=== PATIENT | male | born 1940 | race Caucasian/White ===

== ENCOUNTER 2018-04-14 20:24 | Inpatient (IN) | payer MEDICARE ==
[2018-04-14 21:35] LABS: BASO % 0.3 % (0.0-2.0); HEMOGLOBIN 11.5 g/dL (12.0-18.0); LYMPH # 0.4 K/uL (1.0-4.3); LYMPH % 3.5 % (20.0-40.0); MEAN CELL VOLUME 85.3 fl (80.0-94.0); MEAN CORPUSCULAR HEMOGLOBIN 28.5 pg (27.0-31.0); MEAN CORPUSCULAR HGB CONC 33.4 g/dL (33.0-37.0); MEAN PLATELET VOLUME 9.1 fl (7.2-11.7); MONO # 0.5 K/uL (0.0-0.8); MONO % 4.8 % (0.0-10.0); NEUT # 10.4 K/uL (1.8-7.0); NEUT % 91.4 % (50.0-75.0); PLATELET COUNT 132 K/uL (130-400); RBC 4.04 Mil/uL (4.40-5.90); RED CELL DISTRIBUTION WIDTH 14.8 % (11.5-14.5); WHITE BLOOD COUNT 11.3 K/uL (4.8-10.8)
--- NOTE | 2018-04-14 21:43 | ED PDOC ---
HPI: Trauma/Fall - HPI Time Seen by Provider: 04/14/18 20:33 Chief Complaint (Nursing): Trauma Chief Complaint (Provider): Trauma History Per: Patient History/Exam Limitations: clinical condition (Altered mental status) Additional Complaint(s): 78 y/o male is brought to the ED by EMS for alcohol intoxication. Patient denies use of alcohol and reports that he had fallen outside a bar. Reports that he is unsure of how he fell and denies any loss of consciousness. Patient has poor personal hygeine and smells like urine. Patient is only oriented to person. Denies any further medical complaints. PMD: none provided Past Medical History Reviewed: Historical Data, Nursing Documentation, Vital Signs Vital Signs: Last Vital Signs Temp 98.1 F 04/14/18 20:26 Pulse 92 H 04/14/18 21:40 Resp 20 04/14/18 21:40 BP 143/77 04/14/18 20:26 Pulse Ox 93 L 04/14/18 21:40 - Medical History PMH: No Chronic Diseases - Surgical History Surgical History: No Surg Hx - Family History Family History: States: Unknown Family Hx - Living Arrangements Living Arrangements: Alone (in [place]) - Social History Current smoker - smoking cessation education provided: No Alcohol: None Drugs: Denies - Home Medications Home Medications: Ambulatory Orders Medication Instructions Recorded Iodine/Sodium Iodide [Iodine 2% 2 % TOP BID 04/15/18 Tincture] - Allergies Allergies/Adverse Reactions: Allergies Allergy/AdvReac Type Severity Reaction Status Date / Time No Known Allergies Allergy Verified 04/14/18 20:32 Review of Systems ROS Statement: Except As Marked, All Systems Reviewed And Found Negative (As per HPI,otherwise negative) Neurological: Positive for: Other (Fall) Physical Exam - Reviewed Nursing Documentation Reviewed: Yes Vital Signs Reviewed: Yes - Physical Exam Appears: Positive for: No Acute Distress Head Exam: Positive for: ATRAUMATIC, NORMAL INSPECTION, NORMOCEPHALIC Skin: Positive for: Normal Color (Abrasion on right tibial surface which appears old and has dry blood), Warm, Dry Eye Exam: Positive for: EOMI, Normal appearance, PERRL ENT: Positive for: Normal ENT Inspection Neck: Positive for: Normal, Painless ROM Cardiovascular/Chest: Positive for: Regular Rate, Rhythm. Negative for: Murmur Respiratory: Positive for: Normal Breath Sounds. Negative for: Accessory Muscle Use, Respiratory Distress Gastrointestinal/Abdominal: Positive for: Normal Exam, Soft. Negative for: Tenderness Back: Positive for: Normal Inspection Extremity: Positive for: Pedal Edema (bilaterally), Swelling (B/L LE R>L), Other (draining wound 8x4 cm is noted to tibial surface with yellow sanguinous/ purulent drainage There is surrounding warmth/induration) Neurologic/Psych: Positive for: Alert, Oriented (only to person). Negative for : Motor/Sensory Deficits, Aphasia, Facial Droop - Laboratory Results Result Diagrams: 04/15/18 04:30 04/15/18 04:30 - ECG O2 Sat by Pulse Oximetry: 93 (RA) Pulse Ox Interpretation: Normal Medical Decision Making Medical Decision Making: Time: 20:42 Initial Impression: 78 y/o male with Altered Mental Status Plan: CT head w/o contrast EKG Alcohol serum BNP CMP Drug screen Troponin I Urine dipstick CBC w/ differential PTT Prothrombin time Blood culture Urine culture Heplock insertion Urinalysis Reevaluation Time: [address] FINDINGS: Limitations: Motion artifact - mild. Brain: Moderate atrophy. No definite intracranial hemorrhage. No mass. Few scattered subtle foci of decreased attenuation within periventricular/subcortical white matter. No definite edema. Ventricles: No hydrocephalus. Bones/joints: No acute fracture. Soft tissues: Unremarkable. Sinuses: Scattered minimal to mild mucosal thickening. Mastoid air cells: No mastoid effusion. Orbits: Unremarkable as visualized. IMPRESSION: 1. No definite intracranial hemorrhage. 2. Nonspecific white matter changes. Acute infarction may be CT occult within first 24 hours. If a focal deficit persists, consider followup CT or MRI for further evaluation. 3. Incidental/non-acute findings are described above. Dictated By: Adarsh Coronel MD Dictated Date/Time: 04/14/182308 Signed By: Adarsh Coronel MD Date Signed: 2308 Transcribed By: MAHENDRA Transcribe Date/Time : 04/14/182308 ACYP02/KEVIN Time: 2 Labs reviewed and found signification for mild leukocytosis with left shift, likely source is wound noticed in celluletic lesion to lower extremity. Patient is admitted for SIRS of right lower extremity celluletic draining wound. Podiatry consultation ordered. Patient is referred to Dr. Scherer. Scribe Attestation: Documented by Jason Youngblood acting as a scribe for Enzo Carpenter MD. MD Ramírezibkenn Attestation: All medical record entries made by the Scribe were at my direction and personally dictated by me. I have reviewed the chart and agree that the record accurately reflects my personal performance of the history, physical exam, medical decision making, and the department course for this patient. I have also personally directed, reviewed, and agree with the discharge instructions and disposition. Disposition - Clinical Impression Clinical Impression: Altered mental status, Cellulitis of right lower extremity - Patient ED Disposition Is Patient to be Admitted: Yes - Disposition Disposition Time: 23:00 Condition: FAIR
[2018-04-14 21:46] LABS: ALBUMIN 3.8 g/dL (3.5-5.0); ALT/SGPT 39 U/L (21-72); AST/SGOT 46 U/L (17-59); BLOOD UREA NITROGEN 34 mg/dl (9-20); CALCIUM 8.8 mg/dL (8.4-10.2); GFR AFRICAN-AMERICAN > 60; GFR NON-AFRICAN AMERICAN 53
[2018-04-14 21:54] LABS: B-TYPE NATRIURETIC PEPTIDE 733 pg/ml (0-900)
[2018-04-14 21:58] LABS: INR 1.4 (0.9-1.2); PARTIAL THROMBOPLASTIN TIME 29.3 Seconds (25.6-37.1); PROTHROMBIN TIME 15.1 Seconds (9.8-13.1)
[2018-04-14 22:17] LABS: LYMPHOCYTE 2 % (20-50); MONOCYTE 2 % (0-10); NEUTROPHIL 96 % (42-75); PLATELET ESTIMATE NORMAL (NORMAL); TOTAL CELLS COUNTED 100
[2018-04-14 22:18] LABS: ANISOCYTOSIS SLIGHT; OVALOCYTES SLIGHT; POIKILOCYTOSIS SLIGHT
--- NOTE | 2018-04-14 23:10 | CT ---
EXAM: CT Head Without Intravenous Contrast CLINICAL HISTORY: 78 years old, male; Injury or trauma; Injury Falling? . Found lying on the street. ETOH? ; Initial encounter; Laceration; Consciousness not specified; Without residual foreign body; Head, generalized; Injury date: Today? ; Additional info: AMS TECHNIQUE: Axial computed tomography images of the head/brain without intravenous contrast. All CT scans at this facility use one or more dose reduction techniques, viz.: automated exposure control; ma/kV adjustment per patient size (including targeted exams where dose is matched to indication; i.e. head); or iterative reconstruction technique. Coronal and sagittal reformatted images were created and reviewed. COMPARISON: No relevant prior studies available. FINDINGS: Limitations: Motion artifact - mild. Brain: Moderate atrophy. No definite intracranial hemorrhage. No mass. Few scattered subtle foci of decreased attenuation within periventricular/subcortical white matter. No definite edema. Ventricles: No hydrocephalus. Bones/joints: No acute fracture. Soft tissues: Unremarkable. Sinuses: Scattered minimal to mild mucosal thickening. Mastoid air cells: No mastoid effusion. Orbits: Unremarkable as visualized. IMPRESSION: 1. No definite intracranial hemorrhage. 2. Nonspecific white matter changes. Acute infarction may be CT occult within first 24 hours. If a focal deficit persists, consider followup CT or MRI for further evaluation. 3. Incidental/non-acute findings are described above.
[2018-04-14] MEDS ORDERED: Piperacillin/Tazobact 3.375 GM in Sodium Chloride 0.9% 100 ML IV STA (23:21)
[2018-04-14] MEDS ORDERED: Lactated Ringer's 1,000 ML IV SCH (23:45)
[2018-04-14] MEDS ORDERED: Vancomycin 1 g Inj ONE (23:46)
--- NOTE | 2018-04-14 23:50 | CP.PCM.HP ---
History of Present Illness - History of Present Illness History of Present Illness: CC: confusion HPI: This is an 78 y/o male with unknown medical Hx who was initially brought in by EMS for suspected EtOH intoxication. He was found to have fallen down outside a bar. Patient denies EtOH, and was not sure how he fell. Denied LOC. Patient appears to only be oriented to person and perhaps place. He does not provide much of a reliable history. Patient is unkempt, appears to have poor hygiene, and smells of urine. ROS: limited due to mental status MHx/SHx: patient does not provide any history of chronic disease or surgery Allergie: NKDA Medications: unknown Family Hx: patient cannot provide Social Hx: Apparently patient lives alone, unknown EtOH or tobacco Present on Admission - Present on Admission Any Indicators Present on Admission: No Past Patient History - Past Social History Alcohol: None Drugs: Denies - PSYCHIATRIC Hx Substance Use: No Meds Allergies/Adverse Reactions: Allergies Allergy/AdvReac Type Severity Reaction Status Date / Time No Known Allergies Allergy Verified 04/14/18 20:32 Physical Exam - Constitutional Appears: Unkempt, Confused - Head Exam Head Exam: NORMOCEPHALIC - Eye Exam Eye Exam: EOMI, PERRL - ENT Exam ENT Exam: Mucous Membranes Dry - Neck Exam Neck exam: Positive for: Full Rom - Respiratory Exam Respiratory Exam: Clear to Auscultation Bilateral, NORMAL BREATHING PATTERN - Cardiovascular Exam Cardiovascular Exam: REGULAR RHYTHM, +S1, +S2 - GI/Abdominal Exam GI & Abdominal Exam: Normal Bowel Sounds, Soft - Extremities Exam Additional comments: both LE extremely edemetous appearing with RLE having an open wound/possible abscess with some drainage - Neurological Exam Additional comments: awake, alert, oriented to person/place, but otherwise cannot answer questions clearly, repeats self multiple times. - Skin Additional comments: as described above Results - Vital Signs Recent Vital Signs: Last Vital Signs Temp 98.1 F 04/14/18 20:26 Pulse 88 04/14/18 23:03 Resp 22 04/14/18 23:03 BP 126/63 04/14/18 23:03 Pulse Ox 93 L 04/14/18 23:24 - Labs Result Diagrams: 04/14/18 21:25 04/14/18 21:25 Labs: Laboratory Results - last 24 hr 04/14/18 04/14/18 04/14/18 21:01 21:25 21:25 WBC 11.3 H RBC 4.04 L Hgb 11.5 L Hct 34.4 L MCV 85.3 MCH 28.5 MCHC 33.4 RDW 14.8 H Plt Count 132 MPV 9.1 Neut % (Auto) 91.4 H Lymph % (Auto) 3.[address] [place] % (Auto) 4.8 Eos % (Auto) 0.0 Baso % (Auto) 0.3 Neut # (Auto) 10.4 H Lymph # (Auto) 0.[address] [place] # (Auto) 0.5 Eos # (Auto) 0.0 Baso # (Auto) 0.0 Neutrophils % (Manual) 96 H Lymphocytes % (Manual) 2 L Monocytes % (Manual) 2 Platelet Estimate Normal Poikilocytosis (manual Slight Anisocytosis (manual) Slight Ovalocytes Slight PT INR APTT Sodium 138 Potassium 3.3 L Chloride 102 Carbon Dioxide 19 L Anion Gap 20 BUN 34 H Creatinine 1.3 Est GFR ( Amer) > 60 Est GFR (Non-Af Amer) 53 POC Glucose (mg/dL) 126 H Random Glucose 130 H Lactic Acid Calcium 8.8 Total Bilirubin 1.5 H AST 46 ALT 39 Alkaline Phosphatase 62 Troponin I 0.0380 NT-Pro-B Natriuret Pep 733 Total Protein 7.5 Albumin 3.8 Globulin 3.7 Albumin/Globulin Ratio 1.0 Alcohol, Quantitative < 10 04/14/18 04/14/18 21:25 22:19 WBC RBC Hgb Hct MCV MCH MCHC RDW Plt Count MPV Neut % (Auto) Lymph % (Auto) [place] % (Auto) Eos % (Auto) Baso % (Auto) Neut # (Auto) Lymph # (Auto) [place] # (Auto) Eos # (Auto) Baso # (Auto) Neutrophils % (Manual) Lymphocytes % (Manual) Monocytes % (Manual) Platelet Estimate Poikilocytosis (manual Anisocytosis (manual) Ovalocytes PT 15.1 H INR 1.4 H APTT 29.3 Sodium Potassium Chloride Carbon Dioxide Anion Gap BUN Creatinine Est GFR ( Amer) Est GFR (Non-Af Amer) POC Glucose (mg/dL) Random Glucose Lactic Acid 0.8 Calcium Total Bilirubin AST ALT Alkaline Phosphatase Troponin I NT-Pro-B Natriuret Pep Total Protein Albumin Globulin Albumin/Globulin Ratio Alcohol, Quantitative - Imaging and Cardiology CT scan - head Status: Image reviewed by me, Report reviewed by me (unremarkable) Assessment & Plan (1) Cellulitis of right lower extremity Assessment and Plan: 78 y/o male with unknown medical history presenting with sepsis, likely 2/2 cellulitis/abscess of RLE. 1) Cellulitis/abscess/sepsis -Continue vanc/zosyn as started in ER -IVF -f/u cultures -Podiatry consult 2) Confusion -- suspect undiagnosed dementia 3) DVT PPx -- SQ heparin Status: Acute (2) Edema Status: Acute (3) Confused Status: Acute (4) DVT prophylaxis Status: Acute
[2018-04-14] MEDS ORDERED: Potassium Chloride 20 mEq ER Tab PO ONE (23:55)
[2018-04-15 00:08] LABS: URINE BACTERIA RARE (<OCC); URINE BILIRUBIN NEGATIVE (NEGATIVE); URINE BLOOD MODERATE (NEGATIVE); URINE CLARITY CLOUDY (Clear); URINE COLOR AMBER (YELLOW); URINE GLUCOSE (UA) NEG (Normal); URINE LEUKOCYTE ESTERASE NEG Leu/uL (Negative); URINE PROTEIN 100 mg/dL (NEGATIVE)
[2018-04-15 00:40] LABS: BARBITURATES, UR NEGATIVE (NEGATIVE); BENZODIAZEPINES, UR NEGATIVE (NEGATIVE)
[2018-04-15 00:41] LABS: OPIATES, UR NEGATIVE (NEGATIVE); PHENCYCLIDINE, UR NEGATIVE (NEGATIVE)
--- NOTE | 2018-04-15 00:47 | CP.PCM.CON ---
History of Present Illness - History of Present Illness History of Present Illness: Podiatry Consult- Dr. Batista 78 y.o male with no PMH seen and evaluated in the ED for right leg infection. Patient brought in the ED for suspected EtOH intoxication. Patient is more awake during the encounter, able to answer questions. Patient is seen resting comfortably in bed. Patient does not recall how he got the leg wound. Reports that he noticed it one day about 5 months ago. Reports the wound getting smaller and scabbed over. Patient denies pain to the lower extremity. PMD: none PSH: denies SH: former smoker (reported smoking for couple of months, 1-2 cigarettes per day ), denies drinking EtOH or illicit drug use ALL: NKDA MEDS: none FH: denies Past Patient History - Past Social History Alcohol: None Drugs: Denies - PSYCHIATRIC Hx Substance Use: No Meds Allergies/Adverse Reactions: Allergies Allergy/AdvReac Type Severity Reaction Status Date / Time No Known Allergies Allergy Verified 04/14/18 20:32 - Medications Medications: Current Medications Acetaminophen (Tylenol 325mg Tab) 650 mg PO Q6 PRN PRN Reason: Fever >100.4 F Enoxaparin Sodium (Lovenox) 40 mg SC DAILY DAWN PRN Reason: Protocol Vancomycin HCl 1 gm/ Sodium (Chloride) 250 mls @ 166.667 mls/hr IVPB STAT STA PRN Reason: Protocol Stop: 04/15/18 00:49 Last Admin: 04/14/18 23:52 Dose: 166.667 mls/hr Vancomycin HCl 1 gm/ Sodium (Chloride) 250 mls @ 166.667 mls/hr IVPB Q12 DAWN PRN Reason: Protocol Piperacillin Sod/Tazobactam (Sod 3.375 gm/ Sodium Chloride) 100 mls @ 100 mls/ hr IVPB Q6 DAWN PRN Reason: Protocol Lactated Ringer's (Lactated Ringer's) 1,000 mls @ 100 mls/hr IV .Q10H DAWN Stop: 04/15/18 09:44 Physical Exam - Constitutional Appears: Well, Non-toxic, No Acute Distress - Extremities Exam Extremities exam: Positive for: calf tenderness Additional comments: VASC: DP and PT 2/4 bilaterally, temperature to bilaterally LE warm to warm R>L , CFT < 3 seconds x 10 digis, ORTHO: mild pain with palpation to site surrounding ulceration NEURO: gross and protective sensation intact DERM: RIGHT LE: hyperkeratotic lesion with open fissures noted to the anterior lower 1 /3 leg measuring approximately 3 cm x 6 cm, erythema noted surrounding lesion encompassing entire distal 2/3 of the leg to the ankle. Increase calor, serous drainage, no purulence drainage, no odor, no streaking, lateral aspect of distal 1/3 leg is soft, no fluctanance, no abscess noted- will continue to monitor closely for abscess/fuctanance, no tunneling, no undermining, no probe to bone appreciated LEFT LE: erythema noted to the anterior distal 1/3 leg with no open lesions. No abscess no fluctanance - Neurological Exam Neurological exam: Alert - Psychiatric Exam Psychiatric exam: Normal Affect, Normal Mood Results - Vital Signs Recent Vital Signs: Last Vital Signs Temp 98.1 F 04/14/18 20:26 Pulse 88 04/15/18 00:13 Resp 22 04/15/18 00:13 BP 126/63 04/15/18 00:13 Pulse Ox 93 L 04/15/18 00:16 - Labs Result Diagrams: 04/15/18 04:30 04/15/18 04:30 Labs: Laboratory Results - last 24 hr 04/14/18 04/14/18 04/14/18 21:01 21:25 21:25 WBC 11.3 H RBC 4.04 L Hgb 11.5 L Hct 34.4 L MCV 85.3 MCH 28.5 MCHC 33.4 RDW 14.8 H Plt Count 132 MPV 9.1 Neut % (Auto) 91.4 H Lymph % (Auto) 3.5 L [place] % (Auto) 4.8 Eos % (Auto) 0.0 Baso % (Auto) 0.3 Neut # (Auto) 10.4 H Lymph # (Auto) 0.4 L [place] # (Auto) 0.5 Eos # (Auto) 0.0 Baso # (Auto) 0.0 Neutrophils % (Manual) 96 H Lymphocytes % (Manual) 2 L Monocytes % (Manual) 2 Platelet Estimate Normal Poikilocytosis (manual Slight Anisocytosis (manual) Slight Ovalocytes Slight PT INR APTT Sodium 138 Potassium 3.3 L Chloride 102 Carbon Dioxide 19 L Anion Gap 20 BUN 34 H Creatinine 1.3 Est GFR ( Amer) > 60 Est GFR (Non-Af Amer) 53 POC Glucose (mg/dL) 126 H Random Glucose 130 H Lactic Acid Calcium 8.8 Total Bilirubin 1.5 H AST 46 ALT 39 Alkaline Phosphatase 62 Troponin I 0.0380 NT-Pro-B Natriuret Pep 733 Total Protein 7.5 Albumin 3.8 Globulin 3.7 Albumin/Globulin Ratio 1.0 Urine Color Urine Clarity Urine pH Ur Specific [place] Urine Protein Urine Glucose (UA) Urine Ketones Urine Blood Urine Nitrate Urine Bilirubin Urine Urobilinogen Ur Leukocyte Esterase Urine RBC (Auto) Urine Microscopic WBC Urine Bacteria Urine Opiates Screen Urine Methadone Screen Ur Barbiturates Screen Ur Phencyclidine Scrn Ur Amphetamines Screen U Benzodiazepines Scrn U Oth Cocaine Metabols U Cannabinoids Screen Alcohol, Quantitative < 10 04/14/18 04/14/18 04/14/18 21:25 22:19 23:55 WBC RBC Hgb Hct MCV MCH MCHC RDW Plt Count MPV Neut % (Auto) Lymph % (Auto) [place] % (Auto) Eos % (Auto) Baso % (Auto) Neut # (Auto) Lymph # (Auto) [place] # (Auto) Eos # (Auto) Baso # (Auto) Neutrophils % (Manual) Lymphocytes % (Manual) Monocytes % (Manual) Platelet Estimate Poikilocytosis (manual Anisocytosis (manual) Ovalocytes PT 15.1 H INR 1.4 H APTT 29.3 Sodium Potassium Chloride Carbon Dioxide Anion Gap BUN Creatinine Est GFR ( Amer) Est GFR (Non-Af Amer) POC Glucose (mg/dL) Random Glucose Lactic Acid 0.8 Calcium Total Bilirubin AST ALT Alkaline Phosphatase Troponin I NT-Pro-B Natriuret Pep Total Protein Albumin Globulin Albumin/Globulin Ratio Urine Color Urine Clarity Urine pH Ur Specific [place] Urine Protein Urine Glucose (UA) Urine Ketones Urine Blood Urine Nitrate Urine Bilirubin Urine Urobilinogen Ur Leukocyte Esterase Urine RBC (Auto) Urine Microscopic WBC Urine Bacteria Urine Opiates Screen Negative Urine Methadone Screen Negative Ur Barbiturates Screen Negative Ur Phencyclidine Scrn Negative Ur Amphetamines Screen Negative U Benzodiazepines Scrn Negative U Oth Cocaine Metabols Negative U Cannabinoids Screen Negative Alcohol, Quantitative 04/14/18 23:55 WBC RBC Hgb Hct MCV MCH MCHC RDW Plt Count MPV Neut % (Auto) Lymph % (Auto) [place] % (Auto) Eos % (Auto) Baso % (Auto) Neut # (Auto) Lymph # (Auto) [place] # (Auto) Eos # (Auto) Baso # (Auto) Neutrophils % (Manual) Lymphocytes % (Manual) Monocytes % (Manual) Platelet Estimate Poikilocytosis (manual Anisocytosis (manual) Ovalocytes PT INR APTT Sodium Potassium Chloride Carbon Dioxide Anion Gap BUN Creatinine Est GFR ( Amer) Est GFR (Non-Af Amer) POC Glucose (mg/dL) Random Glucose Lactic Acid Calcium Total Bilirubin AST ALT Alkaline Phosphatase Troponin I NT-Pro-B Natriuret Pep Total Protein Albumin Globulin Albumin/Globulin Ratio Urine Color [place] Urine Clarity Cloudy Urine pH 5.0 Ur Specific [place] 1.026 Urine Protein 100 Urine Glucose (UA) Neg Urine Ketones Trace Urine Blood Moderate Urine Nitrate Negative Urine Bilirubin Negative Urine Urobilinogen 2.0 Ur Leukocyte Esterase Neg Urine RBC (Auto) 3 Urine Microscopic WBC 3 Urine Bacteria Rare Urine Opiates Screen Urine Methadone Screen Ur Barbiturates Screen Ur Phencyclidine Scrn Ur Amphetamines Screen U Benzodiazepines Scrn U Oth Cocaine Metabols U Cannabinoids Screen Alcohol, Quantitative Assessment & Plan - Assessment and Plan (Free Text) Assessment: 78 y.o male with no PMH for right leg ulcer with bilaterally LE cellulitis Plan: Patient seen and examined Discussed plan in detail with attending Dr. Batista Afebrile, WBC 11.3 leukocytosis X-ray reviewed- no gas emphysema, no OM noted Right leg cleansed with wound cleanser and copious saline Wound culture taken of right leg Dressed with xeroform dsd and kerlix Continue with Vanco and Zosyn Ordered duplex to rule out DVT Will continue to follow patient on the floors Thank you for allowing us to participate in patient's care
[2018-04-15 06:05] LABS: HEMOGLOBIN 12.1 g/dL (12.0-18.0); MEAN CELL VOLUME 86.2 fl (80.0-94.0); MEAN CORPUSCULAR HEMOGLOBIN 28.5 pg (27.0-31.0); RBC 4.25 Mil/uL (4.40-5.90); WHITE BLOOD COUNT 12.2 K/uL (4.8-10.8)
[2018-04-15 06:17] LABS: BLOOD UREA NITROGEN 28 mg/dl (9-20); GFR AFRICAN-AMERICAN > 60; GFR NON-AFRICAN AMERICAN 58
[2018-04-15] MEDS: Piperacillin/Tazobact 3.375 GM in Sodium Chloride 0.9% 100 ML IVPB SCH ×3 (06:39→18:00)
--- NOTE | 2018-04-15 07:29 | CP.PCM.PN ---
Subjective - Date & Time of Evaluation Date of Evaluation: 04/15/18 Time of Evaluation: 07:29 - Subjective Subjective: pt oriented to person, place, and time, however takes time to answer questions no pain, no cp , no sob hd stable nad Objective - Vital Signs/Intake and Output Vital Signs (last 24 hours): Temp Pulse Resp BP Pulse Ox 98.3 F 75 20 121/56 L 93 L 04/15/18 05:00 04/15/18 05:00 04/15/18 05:00 04/15/18 05:00 04/15/18 06:34 - Medications Medications: Current Medications Acetaminophen (Tylenol 325mg Tab) 650 mg PO Q6 PRN PRN Reason: Fever >100.4 F Enoxaparin Sodium (Lovenox) 40 mg SC DAILY DAWN PRN Reason: Protocol Vancomycin HCl 1 gm/ Sodium (Chloride) 250 mls @ 166.667 mls/hr IVPB Q12 DAWN PRN Reason: Protocol Piperacillin Sod/Tazobactam (Sod 3.375 gm/ Sodium Chloride) 100 mls @ 100 mls/ hr IVPB Q6H DAWN PRN Reason: Protocol Last Admin: 04/15/18 06:39 Dose: 100 mls/hr Lactated Ringer's (Lactated Ringer's) 1,000 mls @ 100 mls/hr IV .Q10H DAWN Stop: 04/15/18 09:44 Last Admin: 04/15/18 01:31 Dose: 100 mls/hr Pneumococcal Polyvalent Vaccine (Pneumovax 23 Vaccine) 0.5 ml IM .ONCE ONE Stop: 04/15/18 09:01 - Labs Labs: 04/15/18 04:30 04/15/18 04:30 PT 15.1 Seconds (9.8-13.1) H 04/14/18 21:25 INR 1.4 (0.9-1.2) H 04/14/18 21:25 APTT 29.3 Seconds (25.6-37.1) 04/14/18 21:25 - Constitutional Appears: Non-toxic, No Acute Distress - Head Exam Head Exam: ATRAUMATIC, NORMOCEPHALIC - Eye Exam Eye Exam: EOMI, Normal appearance, PERRL - Respiratory Exam Respiratory Exam: Clear to Ausculation Bilateral, NORMAL BREATHING PATTERN - Cardiovascular Exam Cardiovascular Exam: RRR, +S1, +S2 - GI/Abdominal Exam GI & Abdominal Exam: Soft, Normal Bowel Sounds. absent: Tenderness, Organomegaly - Extremities Exam Extremities Exam: Normal Capillary Refill, Tenderness. absent: Joint Swelling - Back Exam Back Exam: absent: CVA tenderness (L), CVA tenderness (R) - Neurological Exam Neurological Exam: Alert, Awake, Oriented x3 - Psychiatric Exam Psychiatric exam: Normal Affect, Normal Mood - Skin Skin Exam: Dry, Warm Assessment and Plan - Assessment and Plan (Free Text) Plan: 78 y/o male with unknown medical Hx who was initially brought in by EMS for suspected EtOH intoxication. He was found to have fallen down outside a bar. Patient denies EtOH, and was not sure how he fell. Denied LOC. Patient appeared to be confused on admission, however today he is oriented to person, place, time. He does have difficulty answering questions at times. Possible dementia? 1) Cellulitis RLE - XR and CT neg for osteomyelitis - afebrile, mild leukocytosis - VANC/ZOSYN initiated - cultures pending - Podiatry consult appreciated - PT/OT for mobility 2) Confusion - dementia? - TSH/B12 PENDING - normal hepatic function - pt BUN elevated, mild azotemia hydrating gently with NS 3) DVT PPx -- SQ heparin
--- NOTE | 2018-04-15 08:28 | RAD ---
HISTORY: admit COMPARISON: No prior. FINDINGS: LUNGS: The lungs are well inflated. There is linear atelectasis/ scarring in the right lung base. PLEURA: No significant pleural effusion identified, no pneumothorax apparent. CARDIOVASCULAR: There is mild cardiomegaly. OSSEOUS STRUCTURES: No significant abnormalities. VISUALIZED UPPER ABDOMEN: Normal. OTHER FINDINGS: None. IMPRESSION: No active pulmonary disease.
[2018-04-15] MEDS ORDERED: Pneumococcal 23-Valent Vaccine IM ONE (09:00)
[2018-04-15] MEDS: Enoxaparin 40 mg Syringe SC SCH (09:37)
--- NOTE | 2018-04-15 09:53 | RAD ---
PROCEDURE: Radiographs of the right tibia and fibula. HISTORY: right lower extremity wound COMPARISON: None available. TECHNIQUE: Frontal and lateral views obtained. FINDINGS: BONES: No acute fracture or destructive lesion.Bone alignment and mineralization are normal. JOINT SPACES: Unremarkable. OTHER FINDINGS: There is diffuse subcutaneous edema in the legs. IMPRESSION: No evidence of osteomyelitis. Subcutaneous edema in the legs.
--- NOTE | 2018-04-15 11:55 | US ---
PROCEDURE: Bilateral lower extremity venous duplex Doppler. HISTORY: r/o DVT COMPARISON: None available. TECHNIQUE: Bilateral common femoral, superficial femoral, popliteal and posterior tibial veins were evaluated. Flow was assessed with color Doppler, compressibility, assessment of phasic flow and augmentation response. FINDINGS: COMMON FEMORAL VEIN: Right CFV: Unremarkable. Left CFV: Unremarkable. SUPERFICIAL FEMORAL VEIN: Right SFV: Unremarkable. Left SFV: Unremarkable. POPLITEAL VEIN: Right Popliteal: Unremarkable. Left Popliteal: Unremarkable. POSTERIOR TIBIAL VEIN: Right PTV: Unremarkable. Left PTV: Unremarkable. OTHER FINDINGS: There are enlarged right inguinal lymph nodes. IMPRESSION: No evidence of deep venous thrombosis. Right inguinal lymphadenopathy which may be reactive, infectious or inflammatory in etiology. Neoplastic etiology cannot be entirely excluded. Clinical correlation and follow-up is advised.
--- NOTE | 2018-04-15 11:58 | CP.PCM.PN ---
Subjective - Date & Time of Evaluation Date of Evaluation: 04/15/18 Time of Evaluation: 11:55 - Subjective Subjective: Podiatry Progress Note- Dr. Batista 78 y.o male seen and evaluated at bedside for right leg ulceration with bilaterally cellulitis and lymphedema. Patient is seen resting comfortably in bed and in NAD. No acute events overnight. Patient reports he feels slightly better. Reports no pain to the lower extremity with no pressure. Reports mild pain with palpation the the lower extremity. Denies nausea, fever, shortness of breath, chest pain or chills. Denies calf pain. Objective - Vital Signs/Intake and Output Vital Signs (last 24 hours): Temp Pulse Resp BP Pulse Ox 97.9 F 72 20 120/64 97 04/15/18 11:53 04/15/18 11:53 04/15/18 11:53 04/15/18 11:53 04/15/18 11:53 - Medications Medications: Current Medications Acetaminophen (Tylenol 325mg Tab) 650 mg PO Q6 PRN PRN Reason: Fever >100.4 F Enoxaparin Sodium (Lovenox) 40 mg SC DAILY DAWN PRN Reason: Protocol Last Admin: 04/15/18 09:37 Dose: 40 mg Vancomycin HCl 1 gm/ Sodium (Chloride) 250 mls @ 166.667 mls/hr IVPB Q12 DAWN PRN Reason: Protocol Last Admin: 04/15/18 09:00 Dose: 166.667 mls/hr Piperacillin Sod/Tazobactam (Sod 3.375 gm/ Sodium Chloride) 100 mls @ 100 mls/ hr IVPB Q6H DAWN PRN Reason: Protocol Last Admin: 04/15/18 06:39 Dose: 100 mls/hr - Labs Labs: 04/15/18 04:30 04/15/18 04:30 PT 15.1 Seconds (9.8-13.1) H 04/14/18 21:25 INR 1.4 (0.9-1.2) H 04/14/18 21:25 APTT 29.3 Seconds (25.6-37.1) 04/14/18 21:25 - Constitutional Appears: Non-toxic, No Acute Distress - Extremities Exam Extremities Exam: absent: Calf Tenderness Additional comments: VASC: DP and PT 2/4 bilaterally, temperature to bilaterally LE warm to warm R>L , CFT < 3 seconds x 10 digits, lymphedema to the LE ORTHO: mild pain with palpation to site surrounding ulceration to the right leg , no calf tenderness with squeeze NEURO: gross sensation intact and protective sensation diminished DERM: RIGHT LE: ulceration noted to the anterior lower 1/3 leg measuring approximately 3 cm x 5 cm, with wound base mainly granular, hyperkeratotic periwound noted superiorly, erythema noted surrounding lesion encompassing entire distal 2/3 of the leg to the ankle. Increase calor, serous drainage, no purulence drainage, no odor, no streaking, lateral aspect of distal 1/3 leg is soft with palpation, no fluctuance, no abscess noted- will continue to monitor closely for abscess/fluctuance, no tunneling, no undermining, no probe to bone appreciated LEFT LE: erythema noted to the anterior distal 1/3 leg with no open lesions. Erythema has slightly improved. No abscess, no fluctuance - Neurological Exam Neurological Exam: Alert, Awake - Psychiatric Exam Psychiatric exam: Normal Affect, Normal Mood Assessment and Plan - Assessment and Plan (Free Text) Assessment: 78 y.o male seen and evaluated at bedside for right leg ulceration with bilaterally cellulitis and lymphedema. Plan: Patient seen and examined Discussed plan in detail with attending Dr. Batista Afebrile, WBC 12.2 leukocytosis (trended up from 11.3) X-ray reviewed- Impression: no OM osteomyelitis noted, subcutaneous edema Duplex- No DVT to LE bilaterally Wound culture taken of right leg in ED- pending Prep patient with betadine, with 18 gauge needle, lateral aspect of lower 1/3 leg was punctured to examine possible abscess in leg. There was no abscess expressed with 18 gauge needle. Sangious blood noted. Cleansed ulceration and site of puncture with saline solution, dressed with dsd , and kerlix. Marked erythema margins to the right leg to monitor cellulitis Ordered CT to r/o emphysema and other pathology Will hold off MRI, unclear if patient has pacemaker Continue with Vanco and Zosyn Will continue to follow patient on the floors Thank you for allowing us to participate in patient's care
--- NOTE | 2018-04-15 15:27 | CT ---
PROCEDURE: CT scan of the right tibia and fibula INDICATION: TECHNIQUE: Multiple axial images were obtained with slice thickness of 2.5 mm. Coronal and sagittal reformatted images were obtained. Iterative reconstruction was used. Radiation dose: Total exam DLP = 435.18 mGy-cm. This CT exam was performed using one or more of the following dose reduction techniques: Automated exposure control, adjustment of the mA and/or kV according to patient size, and/or use of iterative reconstruction technique. COMPARISON: Plain radiographs from 04/14/2018. FINDINGS: There is no acute displaced fracture or bone destruction. Bone alignment is normal. There is diffuse bone demineralization. Bone There is diffuse subcutaneous edema in the left and foot and intermuscular edema without evidence for drainable fluid collection. IMPRESSION: No CT evidence for osteomyelitis. Cellulitis in the leg and foot. No drainable fluid collection.
[2018-04-15] MEDS ORDERED: Sodium Chloride 0.9% 1,000 ML IV SCH (17:15)
[2018-04-16] MEDS: Piperacillin/Tazobact 3.375 GM in Sodium Chloride 0.9% 100 ML IVPB SCH ×4 (00:58→17:01)
[2018-04-16 05:35] LABS: HEMOGLOBIN 11.4 g/dL (12.0-18.0); MEAN CELL VOLUME 86.9 fl (80.0-94.0); MEAN CORPUSCULAR HEMOGLOBIN 28.2 pg (27.0-31.0); MEAN CORPUSCULAR HGB CONC 32.5 g/dL (33.0-37.0); RBC 4.06 Mil/uL (4.40-5.90); RED CELL DISTRIBUTION WIDTH 15.2 % (11.5-14.5); WHITE BLOOD COUNT 8.9 K/uL (4.8-10.8)
[2018-04-16 05:49] LABS: BLOOD UREA NITROGEN 23 mg/dl (9-20); CALCIUM 8.4 mg/dL (8.4-10.2); GFR AFRICAN-AMERICAN > 60; GFR NON-AFRICAN AMERICAN > 60
[2018-04-16] MEDS ORDERED: Potassium Chloride 20 mEq ER Tab PO ONE (08:00)
--- NOTE | 2018-04-16 08:03 | CP.PCM.PN ---
Subjective - Date & Time of Evaluation Date of Evaluation: 04/16/18 Time of Evaluation: 08:03 - Subjective Subjective: Podiatry - Dr. Batista 78M seen and evaluated this AM for RLE cellulitis. Hospitalist present at bedside. Patient hemodynamically stable, NAD. No acute events overnight. Patient states the redness and swelling to his right leg is improving. Admits to mild tenderness around his wound. Denies N/V/F/D/C/SOB. Offers no other complaints. Objective - Vital Signs/Intake and Output Vital Signs (last 24 hours): Temp Pulse Resp BP Pulse Ox 97.4 F L 76 18 151/72 H 95 04/16/18 08:01 04/16/18 08:01 04/16/18 08:01 04/16/18 08:01 04/16/18 08:01 - Medications Medications: Current Medications Acetaminophen (Tylenol 325mg Tab) 650 mg PO Q6 PRN PRN Reason: Fever >100.4 F Cyanocobalamin (Vitamin B12 1000 Mcg/Ml Inj) 1,000 mcg IM DAILY DAWN Stop: 04/18/18 09:01 Enoxaparin Sodium (Lovenox) 40 mg SC DAILY DAWN PRN Reason: Protocol Last Admin: 04/15/18 09:37 Dose: 40 mg Vancomycin HCl 1 gm/ Sodium (Chloride) 250 mls @ 166.667 mls/hr IVPB Q12 DAWN PRN Reason: Protocol Last Admin: 04/15/18 22:15 Dose: 166.667 mls/hr Piperacillin Sod/Tazobactam (Sod 3.375 gm/ Sodium Chloride) 100 mls @ 100 mls/ hr IVPB Q6H DAWN PRN Reason: Protocol Last Admin: 04/16/18 05:30 Dose: 100 mls/hr - Labs Labs: 04/16/18 04:20 04/16/18 04:20 PT 15.1 Seconds (9.8-13.1) H 04/14/18 21:25 INR 1.4 (0.9-1.2) H 04/14/18 21:25 APTT 29.3 Seconds (25.6-37.1) 04/14/18 21:25 - Constitutional Appears: Well, Non-toxic, No Acute Distress - Extremities Exam Additional comments: VASC: DP pulses palpable 2/4 b/l, PT pulses weakly palpable 1/4. CFT <3 seconds to digits x5 b/l. Temperature gradient warm to warm b/l, increase in warmth to erythema RLE. Non-pitting edema to LE b/l, R>L. NEURO: Protective sensation diminished bilaterally. DERM: RLE = Erythema noted to RLE extending from ankle joint to proximal 1/3 of leg, resolving from initial dermarcation - erythema superimposed on venous stasis dermatitis around lower leg. Superficial ulceration noted to anterior right leg measuring approximately 0.3 x 0.2 x 0.1 cm appears to be epithelializing with crust encompassing wound from 12 o'clock to 7 o'clock; minimal sanguinous drainage; no purulence; no fluctuance; no malodor. LLE = Venous stasis dermatitis noted circumfirentially around lower leg. ORTHO: Tenderness to palpation noted to superficial wound right leg. - Neurological Exam Neurological Exam: Alert, Awake - Psychiatric Exam Psychiatric exam: Normal Affect, Normal Mood Assessment and Plan - Assessment and Plan (Free Text) Assessment: 78M with 1) right lower extremity cellulitis, 2) b/l lymphedema, 3) b/l venous stasis dermatitis Plan: Patient seen and evaluated, hospitalist present on rounds Discussed with attending, Dr. Batista Afebrile, WBC WNL @ 8.9 Right tibfib XR: (-)OM B/l venous duplex: (-)DVT RLE CT: (-)OM, cellulitis in leg and foot, (-)abscess Right leg wound culture pending Continue local wound care: saline cleanse, Allevyn pad Erythema + edema resolving; will continue to monitor Continue abx per medicine - Zosyn IV, Vancomycin IV Podiatry will continue to follow
--- NOTE | 2018-04-16 08:49 | CARD ---
APPROVED REPORT EKG Measurement Heart [id number] <Conclusion> Normal sinus rhythm Left anterior fascicular block Abnormal ECG
--- NOTE | 2018-04-16 09:03 | CP.PCM.PN ---
Subjective - Date & Time of Evaluation Date of Evaluation: 04/16/18 Time of Evaluation: 09:00 - Subjective Subjective: No fever RLE sl tenderness pain and erythema better No fever , leukocytosis improving denies CP no SOB no abd pain Objective - Vital Signs/Intake and Output Vital Signs (last 24 hours): Temp Pulse Resp BP Pulse Ox 97.4 F L 76 18 151/72 H 95 04/16/18 08:01 04/16/18 08:01 04/16/18 08:01 04/16/18 08:01 04/16/18 08:01 - Medications Medications: Current Medications Acetaminophen (Tylenol 325mg Tab) 650 mg PO Q6 PRN PRN Reason: Fever >100.4 F Cyanocobalamin (Vitamin B12 1000 Mcg/Ml Inj) 1,000 mcg IM DAILY [facility] Stop: 04/18/18 09:01 Enoxaparin Sodium (Lovenox) 40 mg SC DAILY DAWN PRN Reason: Protocol Last Admin: 04/15/18 09:37 Dose: 40 mg Vancomycin HCl 1 gm/ Sodium (Chloride) 250 mls @ 166.667 mls/hr IVPB Q12 DAWN PRN Reason: Protocol Last Admin: 04/15/18 22:15 Dose: 166.667 mls/hr Piperacillin Sod/Tazobactam (Sod 3.375 gm/ Sodium Chloride) 100 mls @ 100 mls/ hr IVPB Q6H DAWN PRN Reason: Protocol Last Admin: 04/16/18 05:30 Dose: 100 mls/hr - Labs Labs: 04/16/18 04:20 04/16/18 04:20 PT 15.1 Seconds (9.8-13.1) H 04/14/18 21:25 INR 1.4 (0.9-1.2) H 04/14/18 21:25 APTT 29.3 Seconds (25.6-37.1) 04/14/18 21:25 - Constitutional Appears: No Acute Distress - Head Exam Head Exam: NORMAL INSPECTION, NORMOCEPHALIC - Eye Exam Eye Exam: EOMI, Normal appearance Pupil Exam: NORMAL ACCOMODATION - ENT Exam ENT Exam: Mucous Membranes Moist, Normal External Ear Exam - Neck Exam Neck Exam: Full ROM. absent: Meningismus - Respiratory Exam Respiratory Exam: NORMAL BREATHING PATTERN. absent: Respiratory Distress - Cardiovascular Exam Cardiovascular Exam: REGULAR RHYTHM, +S1, +S2 - GI/Abdominal Exam GI & Abdominal Exam: Soft, Normal Bowel Sounds. absent: Tenderness - Extremities Exam Additional comments: venous stasis skin changes RLE erythema, area of ulceration on the RLE with thickened skin and scab - Back Exam Back Exam: Full ROM. absent: CVA tenderness (L), CVA tenderness (R) - Neurological Exam Neurological Exam: Alert, Awake, Oriented x3 Neuro motor strength exam: Left Upper Extremity: 5, Right Upper Extremity: 5, Left Lower Extremity: 5, Right Lower Extremity: 5 Additional comments: decrease hearing - Psychiatric Exam Psychiatric exam: Normal Affect, Normal Mood - Skin Skin Exam: Dry, Normal Color, Warm Assessment and Plan (1) Cellulitis of right lower extremity Status: Acute (2) HTN (hypertension) Status: Chronic (3) Venous insufficiency of both lower extremities Status: Chronic (4) DVT prophylaxis Status: Acute - Assessment and Plan (Free Text) Assessment: 78 y/o gent , denies any PMH, has not been following yup with any physician for years, came because of RLE pain, tenderness, erythema and swelling. Doppler US : negative for DVT CT of the LE : Cellulitis. No Osteomyelitis. No drainable abscess (1) Cellulitis of right lower extremity Status: Acute Wound c/s: heavy growth of GRam + cocci in clusters and light growth of gram neg rods cont IV Zosyna nd Vanco ID consult - Dr Manriquez Podiatry consulted (2) HTN (hypertension) Status: Chronic start Losartan (3) Venous insufficiency of both lower extremities Status: Chronic 4. B12 Deficiency -start B12 shots (5) DVT prophylaxis Status: Acute Lovenox
[2018-04-16] MEDS: Enoxaparin 40 mg Syringe SC SCH (09:49)
--- NOTE | 2018-04-16 11:25 | PQF GENQUE ---
This form is a permanent part of the medical record 04/16/18 Dr. Batista, 1) Please document the etiology of the skin ulcer if known 2) Please document severity of the ulcer if known S/P Fall. Patient states he does not recall how he got the leg wound and that he just noticed it one day about 5 months ago and that it is getting smaller. Documentation of Right leg ulcer with bilateral LE cellulitis and Lymphedema. Clarification of your documentation is requested to better reflect the severity of illness and intensity of treatment of your patient. Indicators present PHYSICIAN'S RESPONSE 1. Please document cause or type of skin ulcer: Non-pressure ulcer associated with: Atherosclerosis of lower extremities Chronic venous hypertension Diabetes Postphlebitic syndrome Postthrombotic syndrome Varicose veins Other (please specify) Unknown Other (please specify) Clinically unable to determine Unknown 2. Please document severity of non-pressure ulcer: Limited to breakdown of skin With fat layer exposure With necrosis of muscle With necrosis of bone Unspecified Clinically unable to determine Unknown Based on your medical judgment of the clinical indicators outlined above please clarify the following: [] Practitioner response [] If unable to determine, please check the box, sign and date. Present On Admission (POA) Indicator: [] Present at the time of admission [] Not present at the time of admission [] Clinically Undetermined In responding to this query, please exercise your independent professional judgment. The fact that a question is asked does not imply that any particular answer is desired or expected. Thank you for your clarification on this documentation. If you have any questions please call:ext [phone] * Thank you, Flora Benjamin RN CDMP [facility]
[2018-04-16 16:19] VITALS: BP 144/71; PULSE 84; RESP 20; TEMP 98.2; O2SAT 97
--- NOTE | 2018-04-16 17:00 | CP.PCM.DIS ---
Provider - Provider Date of Admission: 04/14/18 23:28 Attending physician: Chandni Scherer MD Consults: Podiatry: Dr Batista ID: DR Castro Time Spent in preparation of Discharge (in minutes): 45 Diagnosis - Discharge Diagnosis (1) Cellulitis of right lower extremity Status: Acute (2) HTN (hypertension) Status: Chronic (3) Venous insufficiency of both lower extremities Status: Chronic (4) DVT prophylaxis Status: Acute Hospital Course - Lab Results Lab Results: Micro Results 04/15/18 01:03 Leg - Right Gram Stain - Final 04/15/18 01:03 Leg - Right Wound Culture - Preliminary Gram Positive Cocci Gram Negative [place] 04/14/18 23:55 Urine Urine Culture - Final No Growth (<1,000 CFU/ML) 04/14/18 21:55 Blood-Venous Blood Culture - Preliminary NO GROWTH AFTER 24 HOURS 04/14/18 21:25 Blood-Venous Blood Culture - Preliminary NO GROWTH AFTER 24 HOURS Most Recent Lab Values WBC 8.9 K/uL (4.8-10.8) 04/16/18 04:20 RBC 4.06 Mil/uL (4.40-5.90) L 04/16/18 04:20 Hgb 11.4 g/dL (12.0-18.0) L 04/16/18 04:20 Hct 35.2 % (35.0-51.0) 04/16/18 04:20 MCV 86.9 fl (80.0-94.0) 04/16/18 04:20 MCH 28.2 pg (27.0-31.0) 04/16/18 04:20 MCHC 32.5 g/dL (33.0-37.0) L 04/16/18 04:20 RDW 15.2 % (11.5-14.5) H 04/16/18 04:20 Plt Count 125 K/uL (130-400) L 04/16/18 04:20 MPV 9.1 fl (7.2-11.7) 04/14/18 21:25 Neut % (Auto) 91.4 % (50.0-75.0) H 04/14/18 21:25 Lymph % (Auto) 3.5 % (20.0-40.0) L 04/14/18 21:25 [place] % (Auto) 4.8 % (0.0-10.0) 04/14/18 21:25 Eos % (Auto) 0.0 % (0.0-4.0) 04/14/18 21:25 Baso % (Auto) 0.3 % (0.0-2.0) 04/14/18 21:25 Neut # (Auto) 10.4 K/uL (1.8-7.0) H 04/14/18 21:25 Lymph # (Auto) 0.4 K/uL (1.0-4.3) L 04/14/18 21:25 [place] # (Auto) 0.5 K/uL (0.0-0.8) 04/14/18 21:25 Eos # (Auto) 0.0 K/uL (0.0-0.7) 04/14/18 21:25 Baso # (Auto) 0.0 K/uL (0.0-0.2) 04/14/18 21:25 Neutrophils % (Manual) 96 % (42-75) H 04/14/18 21:25 Lymphocytes % (Manual) 2 % (20-50) L 04/14/18 21:25 Monocytes % (Manual) 2 % (0-10) 04/14/18 21:25 Platelet Estimate Normal (NORMAL) 04/14/18 21:25 Poikilocytosis (manual Slight 04/14/18 21:25 Anisocytosis (manual) Slight 04/14/18 21:25 Ovalocytes Slight 04/14/18 21:25 PT 15.1 Seconds (9.8-13.1) H 04/14/18 21:25 INR 1.4 (0.9-1.2) H 04/14/18 21:25 APTT 29.3 Seconds (25.6-37.1) 04/14/18 21:25 Sodium 141 mmol/l (132-148) 04/16/18 04:20 Potassium 3.5 MMOL/L (3.6-5.0) L 04/16/18 04:20 Chloride 104 mmol/L (98-107) 04/16/18 04:20 Carbon Dioxide 24 mmol/L (22-30) 04/16/18 04:20 Anion Gap 17 (10-20) 04/16/18 04:20 BUN 23 mg/dl (9-20) H 04/16/18 04:20 Creatinine 1.1 mg/dl (0.8-1.5) 04/16/18 04:20 Est GFR ( Amer) > 60 04/16/18 04:20 Est GFR (Non-Af Amer) > 60 04/16/18 04:20 POC Glucose (mg/dL) 126 mg/dL (65-110) H 04/14/18 21:01 Random Glucose 134 mg/dL (75-110) H 04/16/18 04:20 Lactic Acid 0.8 MMOL/L (0.7-2.1) 04/14/18 22:19 Calcium 8.4 mg/dL (8.4-10.2) 04/16/18 04:20 Total Bilirubin 1.5 mg/dl (0.2-1.3) H 04/14/18 21:25 AST 46 U/L (17-59) 04/14/18 21:25 ALT 39 U/L (21-72) 04/14/18 21:25 Alkaline Phosphatase 62 U/L (38-126) 04/14/18 21:25 Troponin I 0.0380 ng/mL (0.00-0.120) 04/14/18 21:25 NT-Pro-B Natriuret Pep 733 pg/ml (0-900) 04/14/18 21:25 Total Protein 7.5 G/DL (6.3-8.2) 04/14/18 21:25 Albumin 3.8 g/dL (3.5-5.0) 04/14/18 21:25 Globulin 3.7 gm/dL (2.2-3.9) 04/14/18 21:25 Albumin/Globulin Ratio 1.0 (1.0-2.1) 04/14/18 21:25 Vitamin B12 275 pg/mL (239-931) 04/16/18 04:20 Free T4 1.10 ng/dL (0.78-2.19) 04/16/18 04:20 Free T3 pg/mL 3.30 pg/mL (2.77-5.27) 04/16/18 04:20 TSH 3rd Generation 1.67 mIU/ML (0.46-4.68) 04/16/18 04:20 Urine Color [place] (YELLOW) 04/14/18 23:55 Urine Clarity Cloudy (Clear) 04/14/18 23:55 Urine pH 5.0 (5.0-8.0) 04/14/18 23:55 Ur Specific [place] 1.026 (1.003-1.030) 04/14/18 23:55 Urine Protein 100 mg/dL (NEGATIVE) 04/14/18 23:55 Urine Glucose (UA) Neg mg/dL (Normal) 04/14/18 23:55 Urine Ketones Trace mg/dL (NEGATIVE) 04/14/18 23:55 Urine Blood Moderate (NEGATIVE) 04/14/18 23:55 Urine Nitrate Negative (NEGATIVE) 04/14/18 23:55 Urine Bilirubin Negative (NEGATIVE) 04/14/18 23:55 Urine Urobilinogen 2.0 mg/dL (0.2-1.0) 04/14/18 23:55 Ur Leukocyte Esterase Neg Kvng/uL (Negative) 04/14/18 23:55 Urine RBC (Auto) 3 /hpf (0-3) 04/14/18 23:55 Urine Microscopic WBC 3 /hpf (0-5) 04/14/18 23:55 Urine Bacteria Rare (<OCC) 04/14/18 23:55 Urine Opiates Screen Negative (NEGATIVE) 04/14/18 23:55 Urine Methadone Screen Negative (NEGATIVE) 04/14/18 23:55 Ur Barbiturates Screen Negative (NEGATIVE) 04/14/18 23:55 Ur Phencyclidine Scrn Negative (NEGATIVE) 04/14/18 23:55 Ur Amphetamines Screen Negative (NEGATIVE) 04/14/18 23:55 U Benzodiazepines Scrn Negative (NEGATIVE) 04/14/18 23:55 U Oth Cocaine Metabols Negative (NEGATIVE) 04/14/18 23:55 U Cannabinoids Screen Negative (NEGATIVE) 04/14/18 23:55 Alcohol, Quantitative < 10 mg/dl (0-10) 04/14/18 21:25 - Hospital Course Hospital Course: 78 y/o gent , denies any PMH, has not been following up with any physician for years, came because of RLE pain, tenderness, erythema and swelling. Doppler US : negative for DVT CT of the LE : Cellulitis. No Osteomyelitis. No drainable abscess. He was started on IV Zosyna nd Vanco. ID consulted - Dr Castro. Podiatry consulted - Wound Care done. Pt signed AMA despite explanation of benefits/risk. Pt is alert, oriented x 3 and verbalized understanding of risks. Pt has capacity to make medical decisions. he states he lives alone and has friends and relatives who can help him out. (1) Cellulitis of right lower extremity Status: Acute Wound c/s: heavy growth of GRam + cocci in clusters and light growth of gram neg rods received IV Zosyn and Vanco ID consulted - Dr Castro- discussed case Podiatry consulted Daily wound care Pt signed AMA- refused to stay despite explanation of risks/benefits Discussed with Dr castro -rec Augmentin and Clinda PO as outpt (2) HTN (hypertension) Status: Chronic start Losartan pt refused antihypertensive (3) Venous insufficiency of both lower extremities Status: Chronic 4. B12 Deficiency -started B12 shots cont Multivitamins (5) DVT prophylaxis Status: Acute Lovenox Discharge Exam - Head Exam Head Exam: ATRAUMATIC, NORMAL INSPECTION, NORMOCEPHALIC - Eye Exam Eye Exam: EOMI, Normal appearance Pupil Exam: NORMAL ACCOMODATION - ENT Exam ENT Exam: Mucous Membranes Moist, Normal External Ear Exam - Neck Exam Neck exam: Full Rom - Respiratory Exam Respiratory Exam: NORMAL BREATHING PATTERN. absent: Respiratory Distress - GI/Abdominal Exam GI & Abdominal Exam: Normal Bowel Sounds, Soft. absent: Tenderness - Extremities Exam Extremities exam: normal capillary refill, pedal edema, pedal pulses present Additional comments: RLE edema, erytehma , small dry ulcer with scab bilateral LE venous stasis skin changes - Back Exam Back exam: FULL ROM. absent: CVA tenderness (L), CVA tenderness (R), vertebral tenderness - Neurological Exam Neurological exam: Alert, CN II-XII Intact, Normal Gait, Oriented x3, Reflexes Normal - Psychiatric Exam Psychiatric exam: Normal Affect, Normal Mood - Skin Skin Exam: Dry, Normal Color, Warm Discharge Plan - Discharge Medications Prescriptions: Amoxicillin/Clavulanate [Augmentin 875 MG-125 MG] 1 tab PO BID #20 tab Clindamycin [Cleocin] 300 mg PO Q12 #20 cap Multivitamins [Hexavitamin] 1 tab PO DAILY #1 tab - Follow Up Plan Condition: STABLE Disposition: AGAINST MEDICAL ADVICE Instructions: Dependent Edema (DC), Cellulitis (Skin Infection), Adult (DC) Additional Instructions: ff up with Dr Jessica husain this week appt with RENEE husain
--- NOTE | 2018-04-17 01:00 | CON ---
INFECTIOUS DISEASE CONSULT DATE: HISTORY OF PRESENT ILLNESS: The patient is an 78-year-old male who speaks well, but is obviously confused, "I'm not aware of any medical history," said that he had Dr. Ledbetter, but who recently as far as he knows and has not seen an MD. He was found passed out outside a bar, but he subsequently found to have that he did not have any alcohol intoxication. The patient is not sure how he fell. He denies loss of consciousness. His consciousness would apparently again was found outside of bar confused. The patient consistently telling me that he wants to sign out and there is no reason for him to stay in hospital. I advised him that he needed IV antibiotics in regards to the infection on his right lower extremity, but he continues to want to sign out. I have discussed with hospitalist who is coming down and speak with him and asked the nursing motor coach supervisor to come down and speak with him, also I have asked for a Psychiatry consult. The patient was alone, but definitely would be unable to take care of himself. Microbiology shows the wound on his leg to have grown Gram-positive cocci and Gram-negative rods. WBC is 11.3, hemoglobin 11.5, and 91% polys. The patient not agreeing to stay. At this point in time, he has been started on vancomycin and Zosyn, but he signed out. We will try to give him some p.o. antibiotics to cover what is going on the infection. Oren Manriquez MD
--- NOTE | 2018-04-17 06:28 | PQF GENQUE ---
This form is a permanent part of the medical record 04/17/18 Dr. Zavala, H&P: Presents with sepsis likely 2* to cellulitis/abscess of RLE. WBC 11.3 with a L shift. Blood CS no growth 48 hours. The diagnosis of Sepsis was not written again. Would you please clarify if Sepsis is ruled in or ruled out. Clarification of your documentation is requested to better reflect the severity of illness and intensity of treatment of your patient. Indicators present PHYSICIAN'S RESPONSE [] Patient has sepsis [] Sepsis was ruled out [] Patient had sepsis which is now resolved [] Other condition (please specify) [] Clinically unable to determine [] Unknown Based on your medical judgment of the clinical indicators outlined above please clarify the following: [] Practitioner response [] If unable to determine, please check the box, sign and date. Present On Admission (POA) Indicator: [] Present at the time of admission [] Not present at the time of admission [] Clinically Undetermined In responding to this query, please exercise your independent professional judgment. The fact that a question is asked does not imply that any particular answer is desired or expected. Thank you for your clarification on this documentation. If you have any questions please call:[phone] * Thank you, Flora Benjamin RN CDMP [facility]
== END 2018-04-16 17:50 | disposition home or self-care (01) | DRG 603 ==
LOC: H.ER 20:24 → H.ERHOLD 23:28 → EDBD 23:28 → H.TEL 04-15 00:50
PROVIDERS: ADMIT Internal Medicine; ATTEND Internal Medicine
PROC: 3E0234Z Introduction of Serum, Toxoid and Vaccine into Muscle, Percutaneous Approach (ICD-10-PCS; principal; 2018-04-15)
DX: L03.115 Cellulitis of right lower limb (principal); L97.811 Non-pressure chronic ulcer of other part of right lower leg limited to breakdown of skin; I89.0 Lymphedema, not elsewhere classified; I87.2 Venous insufficiency (chronic) (peripheral); E53.8 Deficiency of other specified B group vitamins; I10 Essential (primary) hypertension; Z23 Encounter for immunization; Z87.891 Personal history of nicotine dependence; R79.89 Other specified abnormal findings of blood chemistry; R41.0 Disorientation, unspecified